=== PATIENT | female | born 2000 | race Two or more races ===

== ENCOUNTER 2025-07-20 06:55 | Emergency (ER) | payer OTHER, SELFPAY ==
[2025-07-20 06:57] VITALS: BMI 25.8
--- NOTE | 2025-07-20 06:58 | XR_ITS ---
Examination: Knee, left 4 views Technique: Knee AP, lateral, oblique axial 4 views Date and time of exam: July 20, 2025, 0723 hours INDICATIONS: Injury to the knee last night with knee pain FINDINGS: No fracture or patellar dislocation No significant joint narrowing No foreign body Minimal effusion IMPRESSION: No acute fracture or dislocation
[2025-07-20 07:22] VITALS: BP 107/72; PULSE 71; RESP 16; TEMP 37.1; O2SAT 97
[2025-07-20 07:23] VITALS: BMI 25.8
--- NOTE | 2025-07-20 07:31 | PD.EDLOWEX ---
Lower Extremity Injury RME/HPI General Chief Complaint: Extremity Injury, Lower Stated Complaint: LEFT KNEE INJURY Time Seen by Provider: 07/20/25 06:59 Arrival date/time: 07/20/25 06:55 RME / HPI RME / HPI Narrative: 24-year-old female with no significant past medical history presents to the ER complaining of left knee pain after slipping and falling in a parking lot last night and is now having increased difficulty with ambulation. Denies numbness, tingling, weakness, fever. Related Data Previous Rx's ?Medication ?Instructions ?Recorded acetaminophen 500 mg tablet 500 mg PO Q6HR PRN PAIN OR FEVER > 07/18/17 (Tylenol Extra Strength) 101 #30 tabs ibuprofen 600 mg tablet 600 mg PO Q6HR PRN PAIN OR FEVER > 07/18/17 101 #30 tabs naproxen 500 mg tablet 500 mg PO BID PRN pain #14 tabs 07/20/25 Allergies Allergy/AdvReac Type Severity Reaction Status Date / Time No Known Allergies Allergy Verified 07/20/25 06:56 ED Exam Narrative Physical exam: Constitutional: Vital Signs Reviewed. Well appearing. No acute distress. Not toxic appearing. Head: Normocephalic, atraumatic. Eyes: Conjunctiva clear. ENT: Mucous membranes moist. Neck: Trachea midline. Normal range of motion. No nuchal rigidity. Respiratory: Normal effort. No respiratory distress or accessory muscle use. Neuro: Alert and oriented. Speech normal. No focal gross motor or sensory deficits observed. Skin: Warm, dry, normal color. Psych: Pleasant. Normal affect. Cooperative. Left lower extremity: Positive tenderness to palpation to the medial aspect of her left knee along with mild laxity upon valgus stress. Patient has mild limited range of motion and strength 4+ out of 5 secondary to pain. No erythema, significant warmth, irritable joint. Compartments remain soft the left lower extremity. Course Quality Measures none Orders Category Date Time Status Apply knee immobilizer NOW Care 07/20/25 09:13 Completed Crutches .NOW Care 07/20/25 09:13 Completed XR knee comp LT 4V Stat Exams 07/20/25 06:58 Completed Ketorolac Inj [Toradol Inj] Med 07/20/25 09:13 Discontinued 30 mg IM X1 ONE Vital Signs Vital signs: Vital Signs Temperature 98.8 F 07/20/25 07:22 Pulse Rate 71 07/20/25 07:22 Respiratory Rate 16 07/20/25 07:22 Blood Pressure 107/72 07/20/25 07:22 Pulse Oximetry (%) 97 07/20/25 07:22 Oxygen Delivery Method Room Air 07/20/25 07:22 Extremity Injury, Lower MDM Narrative MDM Narrative:: MDM: Concern for internal knee derangement resulting in effusion from sprain versus strain versus occult fracture or dislocation versus MCL sprain No infectious etiology and low suspicion for septic arthritis given lack of circumferential erythema, heat, irritable joint as patient has a fairly good mid range motion but is painless Extremity remains distally neurovascular intact with soft compartments X-ray without gross fracture or bony malalignment Plan for RICE therapy, knee immobilizer, crutches weightbearing as tolerated, pain and nausea management as needed f/u with pmd and ortho in 1-2 days, strict ER return precautions Patient data External records reviewed:: [facility] previous records Clinical information provided by:: patient Social determinants that could affect healthcare access:: none Patient has the following chronic illnesses:: As noted How is presenting disease/condition affected by chronic disease/condition?: no chronic disease Evaluation data The following diagnostics were reviewed and interpreted by me:: other (specify) Lab and/or radiology exams considered but not ordered:: Additional Labs and radiology considered, but not ordered as they were not clinically indicated at this time. Interpretation Summary: As noted Medications / Prescriptions Medications or Prescriptions considered but not ordered:: I considered prescription management (both outpatient prescriptions AND drug treatment in the ER) and decided that this was necessary and was prescribed as charted. Medication administrations:: Medication Administration History Discontinued Medications Ketorolac Tromethamine (Ketorolac Inj 30 Mg/Ml Vial) 30 mg IM X1 ONE Stop: 07/20/25 09:14 Last Admin: 07/20/25 09:27 Dose: 30 mg Documented By: As noted Consultations Consultation(s) initiated? (list below): No Diagnosis Most likely diagnosis given after review of the tests above:: As noted Admission Indicated Admission indicated?: not indicated Admission Request Was there a request for admission?: No Disposition Plan Disposition Plan: Discharge Discharge Attestation Discharge Attestation: The patient and all family members were given an opportunity to ask questions and understood the discharge instructions. Discharge instructions specifically effects, indications for sooner follow up or return to the emergency department, and the expected course of current diagnosis. Patient condition: Stable Discharge Plan Plan Patient Disposition: HOME (Self Care) Patient condition on transfer: Stable Prescriptions/Referrals Prescriptions/Med Rec: New naproxen 500 mg tablet 500 mg PO BID PRN (Reason: pain) Qty: 14 0RF Rx Instructions: take wtih food and 8 oz of water No Action acetaminophen [Tylenol Extra Strength] 500 MG tablet 500 mg PO Q6HR PRN (Reason: PAIN OR FEVER > 101) Qty: 30 0RF ibuprofen 600 MG tablet 600 mg PO Q6HR PRN (Reason: PAIN OR FEVER > 101) Qty: 30 0RF Referrals: Leobardo Colindres MD [Primary Care Provider, Family Practice] - In 1 week Fredy Aviles MD [Physician, Orthopedics] - In 1 week Problem List Clinical Impression: Acute internal derangement of knee Patient/Caregiver Discharge Instructions Education Materials: How Your Knee Works Additional Instructions: Follow up with your primary medical doctor and an orthopedic doctor within 24 hours. Return to the Emergency Room immediately for any new, worsening, continuing symptoms or any concerns at all. Return to the Emergency Room within 24 hours if you are unable to follow up with your primary medical doctor and an orthopedic doctor within 24 hours. Print Language: [place] Stand Alone Forms: Kellee Award Info., Work/School Release, Patient Portal Info Letter REAL/HETAL Supervising Physician REAL/HETAL Supervising Physician: Dr. Singleton
[2025-07-20] MEDS: KETOROLAC INJ 30 MG/ML VIAL IM (09:27)
== END 2025-07-20 10:01 | disposition home or self-care (01) ==
PROVIDERS: Emergency Provider Physician Assistant; PCP Specialist
DX: S83.105A Unspecified dislocation of left knee, initial encounter (principal); W01.0XXA Fall on same level from slipping, tripping and stumbling without subsequent striking against object, initial encounter; Y92.481 Parking lot as the place of occurrence of the external cause
CPT/HCPCS: 73564; 81025; 96372; 99283; J1885